=== PATIENT | male | born 1960 | race Caucasian/White ===

== ENCOUNTER 2022-11-11 16:09 | Emergency (ER) | payer BC ==
[~2022-11-11] VITALS: Ht 172.7 cm; Wt 78.5 kg
[2022-11-11] MEDS ORDERED: ATORVASTATIN CA10 MG PO (16:16)
== END 2022-11-11 18:40 | disposition home or self-care (01) ==
LOC: ER 16:09
DX: S02.2XXA Fracture of nasal bones, initial encounter for closed fracture (principal); W01.0XXA Fall on same level from slipping, tripping and stumbling without subsequent striking against object, initial encounter; Y93.89 Activity, other specified; Y92.018 Other place in single-family (private) house as the place of occurrence of the external cause